=== PATIENT | female | born 1960 | race African-American/Black ===

== ENCOUNTER 2016-06-23 08:13 | Emergency (ER) | payer OTHER ==
[2016-06-23 08:34] VITALS: BMI 34.9
--- NOTE | 2016-06-23 09:36 | PDOC ---
History of Present Illness - History of Present Illness Initial Comments: 06/23/16 09:47 The patient is a 56 year old female, with a significant past medical history of hypertension, who presents to the emergency department with a sudden onset of chest pain at 7:30AM, followed by a gradual onset of chest tightness. 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 The patient states her pain is non- radiating, and resolved after a minute, however, she states the pain was followed by a chest tightness that has been increasingly worsening since the onset. She reports taking 4 baby aspirin in the ambulance in route to the ED which alleviated her chest pain. She states she had a negative nuclear stress test about 2 years ago. She denies shortness of breath, headache and dizziness. She denies fever, chills , nausea, vomit, diarrhea and constipation. She denies dysuria, frequency, urgency and hematuria. Allergies: naproxen PCP - Dr. Doan <Bruna Smith - Last Filed: 06/23/16 11:26> - General History Source: Patient Exam Limitations: No Limitations <Doug Cuevas - Last Filed: 06/23/16 13:38> - General Chief Complaint: Chest Pain Stated Complaint: CHEST PAIN Time Seen by Provider: 06/23/16 09:12 Past History <Bruna Smith - Last Filed: 06/23/16 11:26> - Past Medical History Anemia: No Asthma: No Cancer: No Cardiac Disorders: Yes (enlarged heart cardiomegaly) CVA: No COPD: No CHF: No Dementia: No Diabetes: No GI Disorders: No Disorders: No HTN: Yes Hypercholesterolemia: No Liver Disease: No Seizures: No Thyroid Disease: No - Surgical History Abdominal Surgery: No Appendectomy: No Cardiac Surgery: Yes (angio 2006) Cholecystectomy: No Lung Surgery: No Neurologic Surgery: No Orthopedic Surgery: No - Psycho/Social/Smoking Cessation Hx Anxiety: No Suicidal Ideation: No Smoking History: Never smoked Have you smoked in the past 12 months: No Information on smoking cessation initiated: No Hx Alcohol Use: No Drug/Substance Use Hx: No Substance Use Type: None Hx Substance Use Treatment: No <Doug Cuevas - Last Filed: 06/23/16 13:38> - Past Medical History Allergies/Adverse Reactions: Allergies Allergy/AdvReac Type Severity Reaction Status Date / Time naproxen Allergy Verified 06/23/16 08:34 Home Medications: Ambulatory Orders Carvedilol 3.125 mg PO BID 12/24/14 Lisinopril/Hydrochlorothiazide [Lisinopril-Hctz 20-25 mg Tab] 1 each PO DAILY Review of Systems - Review of Systems Able to Perform ROS?: Yes Comments:: 06/23/16 09:49 GENERAL/CONSTITUTIONAL: No fever or chills. No weakness. HEAD, EYES, EARS, NOSE AND THROAT: No change in vision. No ear pain or discharge. No sore throat. CARDIOVASCULAR: (+) chest pain and tightness. No shortness of breath. RESPIRATORY: No cough, wheezing, or hemoptysis. GASTROINTESTINAL: No nausea, vomiting, diarrhea or constipation. GENITOURINARY: No dysuria, frequency, or change in urination. MUSCULOSKELETAL: No joint or muscle swelling or pain. No neck or back pain. SKIN: No rash NEUROLOGIC: No headache, vertigo, loss of consciousness, or change in strength/ sensation. ENDOCRINE: No increased thirst. No abnormal weight change. HEMATOLOGIC/LYMPHATIC: No anemia, easy bleeding, or history of blood clots. ALLERGIC/IMMUNOLOGIC: No hives or skin allergy. <Bruna Smith - Last Filed: 06/23/16 11:26> *Physical Exam - Vital Signs Last Vital Signs Temp Pulse Resp BP Pulse Ox 98.7 F 72 18 142/92 99 06/23/16 08:15 06/23/16 08:15 06/23/16 08:15 06/23/16 08:15 06/23/16 08:30 - Physical Exam Comments: 06/23/16 09:50 GENERAL: Awake, alert, and fully oriented, in no acute distress HEAD: No signs of trauma EYES: PERRLA, EOMI, sclera anicteric, conjunctiva clear ENT: Auricles normal inspection, hearing grossly normal, nares patent, oropharynx clear without exudates. Moist mucosa NECK: Normal ROM, supple, no lymphadenopathy, JVD, or masses LUNGS: Breath sounds equal, clear to auscultation bilaterally. No wheezes, and no crackles HEART: Regular rate and rhythm, normal S1 and S2, no murmurs, rubs or gallops ABDOMEN: Soft, nontender, normoactive bowel sounds. No guarding, no rebound. No masses EXTREMITIES: Normal range of motion, no edema. No clubbing or cyanosis. No cords, erythema, or tenderness NEUROLOGICAL: Cranial nerves II-XII intact. Normal speech, normal gait. Sensation intact in upper and lower extremities. 5/5 motor strength in upper and lower extremities. No pronator drift. Finger to nose intact. Rapid alternations intact. SKIN: Warm, Dry, normal turgor, no rashes or lesions noted. <Bruna Smith - Last Filed: 06/23/16 11:26> - Vital Signs Last Vital Signs Temp Pulse Resp BP Pulse Ox 98.7 F 72 18 142/92 99 06/23/16 08:15 06/23/16 08:15 06/23/16 08:15 06/23/16 08:15 06/23/16 08:30 <Doug Cuevas - Last Filed: 06/23/16 13:38> Heart Score/ECG Review - History History: Moderately suspicious - Electrocardiogram EKG: Normal - Age Age: 45-65 - Risk Factors Risk Factors Heart Score: Yes Hx Hypertension, Yes Hx Obesity Based on the list above the patient has:: 1-2 risk factors - Troponin Troponin: </= normal limit - Score Heart Score - Total: 3 #1 ECG reviewed & interpreted by me at: 08:20 06/23/16 09:30 NSr 74, with no std/jessica, normal axis, normal intervals, QTC 455 msec. normal ECG <Doug Cuevas - Last Filed: 06/23/16 13:38> ED Treatment Course - LABORATORY CBC & Chemistry Diagram: 06/23/16 10:01 06/23/16 10:01 - RADIOLOGY Radiograph Interpretation: 06/23/16 11:26 CXR was read by Dr. Davis at 11:[address] Cuevas at 11:18 Impression: No acute pathology. No significant change <Bruna Smith - Last Filed: 06/23/16 11:26> - LABORATORY CBC & Chemistry Diagram: 06/23/16 10:01 06/23/16 10:01 - RADIOLOGY Radiology Studies Ordered: Category Date Time Status CHEST X-RAY PORTABLE* [RAD] Stat Radiology 06/23/16 09:19 Ordered <Doug Cuevas - Last Filed: 06/23/16 13:38> Medical Decision Making - Medical Decision Making 06/23/16 09:31 A portion of this note was documented by scribe services under my direction. I have reviewed the details of the note, within reason, and agree with the documentation with the following case summary and management plan written by me. Patient treated in the ED. Nursing notes are reviewed and incorporated into the medical decision-making. Vital signs reviewed. Peripheral IV access obtained by the nurse, laboratory studies are drawn and sent, reviewed and interpreted by myself. Vital Signs Temp Pulse Resp BP Pulse Ox 98.7 F 72 18 142/92 99 06/23/16 08:15 06/23/16 08:15 06/23/16 08:15 06/23/16 08:15 06/23/16 08:30 56-year-old female with past medical history of hypertension, obesity, unclear if has history of coronary disease, last stress test at [facility] 2 years ago reportedly negative presents with chest pain at 7:30 AM. The patient works at [employer]. She was having an argument with a colleague when she started developing a minute worth of chest tightness or shortness of breath. No nausea, vomiting. No radiation. Stated the symptoms resolved. EMS was called was given 4 baby aspirin's. Patient denies chest pain now. Above, questional history of coronary disease as patient has had a cardiac catheterization multiple years ago for potential coronary disease blockage, however, patient had a clean cardiac catheterization. Patient's EKG is normal. We'll obtain to troponins to rule out the patient's MS and if negative, patient can be discharged home with follow-up with PMD. 06/23/16 13:35 CBC, BMP 06/23/16 10:01 06/23/16 10:01 CMP Sodium 140 mmol/L (136-145) 06/23/16 10:01 Potassium 4.1 mmol/L (3.5-5.1) 06/23/16 10:01 Chloride 102 mmol/L (98-107) 06/23/16 10:01 Carbon Dioxide 26 mmol/L (21-32) 06/23/16 10:01 Anion Gap 12 (8-16) 06/23/16 10:01 BUN 16 mg/dL (7-18) 06/23/16 10:01 Creatinine 0.7 mg/dL (0.55-1.02) D 06/23/16 10:01 Creat Clearance w eGFR > 60 (>60) 06/23/16 10:01 Random Glucose 105 mg/dL (74-106) 06/23/16 10:01 Calcium 9.6 mg/dL (8.5-10.1) 06/23/16 10:01 Total Bilirubin 0.9 mg/dL (0.2-1.0) 06/23/16 10:01 AST 10 U/L (15-37) L D 06/23/16 10:01 ALT 20 U/L (12-78) 06/23/16 10:01 Alkaline Phosphatase 68 U/L (45-117) D 06/23/16 10:01 Creatine Kinase 102 IU/L (26-192) 06/23/16 13:00 Troponin I < 0.02 ng/ml (0.00-0.05) 06/23/16 13:00 Total Protein 7.0 g/dl (6.4-8.2) 06/23/16 10:01 Albumin 3.9 g/dl (3.4-5.0) D 06/23/16 10:01 Two trop negative. Pt feels comfortable going home. I discussed the physical exam findings, ancillary test results and final diagnoses with the patient. I answered all of the patient's questions. The patient was satisfied with the care received and felt comfortable with the discharge plan and treatment plan. The patient will call their primary care physician within 24 hours to arrange follow-up and will return to the Emergency Department with any new, persistant or worsening symptoms. <Doug Cuevas - Last Filed: 06/23/16 13:38> *DC/Admit/Observation/Transfer - Attestations Scribe Attestion: 06/23/16 09:50 Documentation prepared by Bruna Smith, acting as biomedical engineering technician for Doug Cuevas MD, <Bruna Smith - Last Filed: 06/23/16 11:26> - Discharge Dispostion Admit: No <Doug Cuevas - Last Filed: 06/23/16 13:38> Diagnosis at time of Disposition: Chest pain Qualifiers: Chest pain type: other chest pain Qualified Code(s): R07.89 - Other chest pain - Discharge Dispostion Disposition: HOME Condition at time of disposition: Good - Referrals Referrals: Alfonso Doan [Primary Care Provider] - - Patient Instructions Printed Discharge Instructions: DI for Chest Pain Additional Instructions: You have two negative troponins, a normal chest xray, and a normal ECG. Please follow up with your doctor.
[2016-06-23 10:18] LABS: BASOPHIL 0.4 % (0-2.0); MCH 30.6 pg (25.7-33.7); MCHC 33.4 g/dl (32.0-36.0); MEAN CELL VOLUME 91.5 fl (80-96); MEAN PLT VOLUME 8.2 fl (7.5-11.1); NEUTROPHILS 45.5 % (42.8-82.8); PLATELET COUNT 248 K/MM3 (134-434); RDW 13.6 % (11.6-15.6); WHITE BLOOD COUNT 4.8 K/mm3 (4.0-10.0)
[2016-06-23 10:36] LABS: ALBUMIN 3.9 g/dl (3.4-5.0); ANION GAP 12 (8-16); BILIRUBIN,TOTAL 0.9 mg/dL (0.2-1.0); CALCIUM 9.6 mg/dL (8.5-10.1); CO2 26 mmol/L (21-32); COCKROFT - GAULT 147.7895; CREATININE 0.7 mg/dL (0.55-1.02); GLUCOSE,RANDOM 105 mg/dL (74-106); SGOT/AST 10 U/L (15-37); SGPT/ALT 20 U/L (12-78)
[2016-06-23 10:38] LABS: ALK PHOS 68 U/L (45-117); TROPONIN I < 0.02 ng/ml (0.00-0.05)
[2016-06-23 13:31] LABS: TROPONIN I < 0.02 ng/ml (0.00-0.05)
[2016-06-23 13:54] VITALS: BP 113/60; PULSE 64; TEMP 97.9
--- NOTE | 2016-06-24 10:39 | EKG ---
Test Reason : Blood Pressure : / mmHG Vent. Rate : 074 BPM Atrial Rate : 074 BPM P-R Int : 172 ms QRS Dur : 088 ms QT Int : 410 ms P-R-T Axes : 039 046 042 degrees QTc Int : 455 ms NORMAL SINUS RHYTHM NORMAL ECG WHEN COMPARED WITH ECG OF 24-JUN-2014 20:14, NO SIGNIFICANT CHANGE WAS FOUND Confirmed by NICOLE SHAH MD ([id number]) on 06/24/2016 10:39:17 AM Referred By: Confirmed By:NICOLE SHAH MD
== END 2016-06-23 13:54 | disposition home or self-care (01) ==
LOC: JER 08:13
DX: R07.89 Other chest pain (principal); I10 Essential (primary) hypertension; I51.7 Cardiomegaly
CPT/HCPCS: 36415; 71010-TC; 80053; 82550; 84484; 85025; 93005; 93010; 99285-25